=== PATIENT | male | born 1990 | race Caucasian/White ===

== ENCOUNTER 2022-01-01 15:06 | Emergency (ER) | payer BC, OTHER ==
[2022-01-01 15:18] VITALS: BP 133/93; PULSE 127
[2022-01-01] MEDS ORDERED: Alum Hydrox/Mag Hydrox/Simeth 30 ML, Lidocaine 2% 15 ML PO ONE ×2 (15:37)
[2022-01-01] MEDS ORDERED: Ondansetron 4 MG/2 ML SDV IVPUSH ONE (15:37)
[2022-01-01] MEDS ORDERED: Lactated Ringers 1,000 ML IV ONE (15:37)
== END 2022-01-01 17:56 | disposition home or self-care (01) ==
LOC: JD.ED 15:06
DX: R11.10 Vomiting, unspecified (principal); Z88.0 Allergy status to penicillin
CPT/HCPCS: 36415; 80053; 83605; 83690; 85025; 96374; 99284; A9270; J2405; J7120